=== PATIENT | female | born 1970 | race Caucasian/White ===

== ENCOUNTER 2018-01-24 20:03 | Emergency (ER) | payer BC ==
[2018-01-24] MEDS ORDERED: Ringers Lactate 1,000 ML IV ONE (20:23)
[2018-01-24] MEDS ORDERED: HYDROMORPHONE HCL 1 MG/ML INJ ONE (20:23)
[2018-01-24] MEDS ORDERED: TETANUS & DIPHTHERIA TOX,ADULT 0.5 ML VIAL ONE (20:44)
[2018-01-24] MEDS ORDERED: FENTANYL CITR 100 MCG/2 ML ONE ×2 (21:03→21:44)
[2018-01-24 21:17] LABS: Absolute Lymphocytes (CBC) 2.2 K/uL (0.7-4.9); Absolute Monocytes 0.5 K/uL (0.1-1.3); Absolute Neutrophil 6.7 K/uL (1.8-8.0); Basophils % 0.6 % (0-1.3); Eosinophils % 0.4 % (0-4.4); Hematocrit 44.4 % (36.0-45.0); Lymphocytes % 23.1 % (15.3-44.8); MCH 38.8 pg (27.0-35.0); MCV 111.5 fL (80-100); MPV 9.1 fL (7.6-11.3); Monocytes % 5.2 % (3.3-12.3); RBC Red Blood Cell Count 3.98 M/uL (3.86-4.86)
--- NOTE | 2018-01-24 21:19 | EDPHYS ---
Physician Documentation [facility] Name: Anh Alegre Age: 47 yrs Sex: Female : 1970 Arrival Date: 01/24/2018 Time: 20:07 Bed 5 Private MD: ED Physician Teto Vargas HPI: 01/24 21:19 This 47 yrs old Female presents to ER via Ambulatory with complaints of Hand tw4 Burn. 21:19 The patient presents with a burn as a result of hot grease, while cooking, at home. tw4 Onset: The symptoms/episode began/occurred today. Burn type and severity: 2nd degree: approximately 1% total body surface area of second degree injury, of the dorsal aspect of proximal phalanx of left thumb, dorsal aspect of middle phalanx of left index finger, dorsal aspect of proximal phalanx of left index finger, dorsal aspect of distal phalanx of left middle finger, dorsal aspect of middle phalanx of left middle finger, dorsal aspect of proximal phalanx of left middle finger, dorsal aspect of distal phalanx of left ring finger, dorsal aspect of middle phalanx of left ring finger, dorsal aspect of proximal phalanx of left ring finger, dorsal aspect of distal phalanx of left little finger, dorsal aspect of middle phalanx of left little finger, dorsal aspect of proximal phalanx of left little finger, dorsum of left hand, palmar aspect of distal phalanx of left little finger, palmar aspect of middle phalanx of left little finger, palmar aspect of proximal phalanx of left little finger, palmar aspect of distal phalanx of left ring finger, palmar aspect of middle phalanx of left ring finger, palmar aspect of proximal phalanx of left ring finger, palmar aspect of distal phalanx of left middle finger, palmar aspect of middle phalanx of left middle finger, palmar aspect of proximal phalanx of left middle finger, palmar aspect of distal phalanx of left index finger, palmar aspect of middle phalanx of left index finger, palmar aspect of proximal phalanx of left index finger, palmar aspect of distal phalanx of left thumb, palmar aspect of proximal phalanx of left thumb, palm of left hand, left thumbnail, left index fingernail, left middle fingernail, left ring fingernail, left little fingernail and Left first web space. 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 - Social history:: Smoking status: Patient uses tobacco products, smokes one-half pack cigarettes per day, Patient uses alcohol, occasionally. - Ebola Screening: : Patient negative for fever greater than or equal to 101.5 degrees Fahrenheit, and additional compatible Ebola Virus Disease symptoms Patient denies exposure to infectious person Patient denies travel to an Ebola-affected area in the 21 days before illness onset. ROS: 21:19 Constitutional: Negative for fever, chills, and weight loss, Eyes: Negative for injury, tw4 pain, redness, and discharge, Cardiovascular: Negative for chest pain, palpitations, and edema, Respiratory: Negative for shortness of breath, cough, wheezing, and pleuritic chest pain, Abdomen/GI: Negative for abdominal pain, nausea, vomiting, diarrhea, and constipation. 21:19 MS/extremity: Positive for injury or acute deformity, decreased range of motion, pain. Exam: 21:19 Head/Face: Normocephalic, atraumatic. Chest/axilla: Normal chest wall appearance and tw4 motion. Nontender with no deformity. No lesions are appreciated. Cardiovascular: Regular rate and rhythm with a normal S1 and S2. No gallops, murmurs, or rubs. Normal PMI, no JVD. No pulse deficits. Respiratory: Lungs have equal breath sounds bilaterally, clear to auscultation and percussion. No rales, rhonchi or wheezes noted. No increased work of breathing, no retractions or nasal flaring. Abdomen/GI: Soft, non-tender, with normal bowel sounds. No distension or tympany. No guarding or rebound. No evidence of tenderness throughout. 21:19 Neuro: Awake and alert, GCS 15, oriented to person, place, time, and situation. Cranial nerves II-XII grossly intact. Motor strength 5/5 in all extremities. Sensory grossly intact. Cerebellar exam normal. Normal gait. 21:19 Constitutional: The patient appears in obvious distress, in obvious pain. 21:19 Musculoskeletal/extremity: Extremities: noted in the dorsal aspect of distal phalanx of left thumb, dorsal aspect of proximal phalanx of left thumb, dorsal aspect of distal phalanx of left index finger, dorsal aspect of middle phalanx of left index finger, dorsal aspect of proximal phalanx of left index finger, dorsal aspect of distal phalanx of left middle finger, dorsal aspect of middle phalanx of left middle finger, dorsal aspect of proximal phalanx of left middle finger, left ring finger, dorsal aspect of distal phalanx of left ring finger, dorsal aspect of middle phalanx of left ring finger, dorsal aspect of proximal phalanx of left ring finger, dorsal aspect of distal phalanx of left little finger, dorsal aspect of middle phalanx of left little finger, dorsal aspect of proximal phalanx of left little finger, dorsum of left hand, palmar aspect of distal phalanx of left little finger, palmar aspect of middle phalanx of left little finger, palmar aspect of proximal phalanx of left little finger, palmar aspect of distal phalanx of left ring finger, palmar aspect of middle phalanx of left ring finger, palmar aspect of proximal phalanx of left ring finger, palmar aspect of distal phalanx of left middle finger, palmar aspect of middle phalanx of left middle finger, palmar aspect of proximal phalanx of left middle finger, palmar aspect of distal phalanx of left index finger, palmar aspect of middle phalanx of left index finger, palmar aspect of proximal phalanx of left index finger, heel of left hand, left thumbnail, left index fingernail, left middle fingernail and left little fingernail: 2nd degree burn. Vital Signs: 20:05 BP 154 / 116; Pulse 141; Resp 18; Temp 99.7(O); Pulse Ox 99% on R/A; Weight 58.97 kg fc (R); Height 5 ft. 3 in. (160.02 cm) (R); Pain 10/10; 20:38 BP 146 / 104; Pulse 95; Resp 16; Pulse Ox 98% on R/A; mt 21:18 BP 141 / 94; Pulse 82; Resp 20 S; Pulse Ox 97% on R/A; Pain 7/10; cc3 21:30 BP 145 / 87; Pulse 84; Resp 20 S; Pulse Ox 100% on R/A; Pain 7/10; cc3 20:05 Body Mass Index 23.03 (58.97 kg, 160.02 cm) MDM: 20:07 Patient medically screened. tw4 21:19 Differential diagnosis: 2nd degree lau, 3rd degree lau. Data reviewed: vital signs, tw4 nurses notes. Data interpreted: Pulse oximetry: is not applicable for this patient encounter. Counseling: I had a detailed discussion with the patient and/or guardian regarding: the historical points, exam findings, and any diagnostic results supporting the discharge/admit diagnosis. Medication response: fentanyl. Response to treatment: the patient's symptoms have markedly improved after treatment, and as a result, I will admit patient. Special discussion: I discussed with the patient/guardian in detail that at this point there is no indication for admission to the hospital. It is understood, however, that if the symptoms persist or worsen the patient needs to return immediately for re-evaluation. 01/24 20:55 Order name: CBC with Diff [facility] 01/24 20:55 Order name: CMP [facility] 01/24 20:59 Order name: PT-INR 01/24 20:59 Order name: Ptt, Activated 01/24 21:21 Order name: CBC Smear Scan EDMS Administered Medications: 20:18 Drug: Dilaudid 1 mg Route: IVP; Site: right antecubital; 21:00 Follow up: Response: No adverse reaction; Pain is unchanged, physician notified 20:25 Drug: Lactated Ringers Solution 1000 ml Route: IV; Rate: 150 ml/hr; Site: right cc3 antecubital; 21:15 Follow up: Response: No adverse reaction; IV Status: Completed infusion; IV Intake: cc3 1000ml 20:34 Not Given (order changed): ADAcel 0.5 ml IM once; indicated for adults and teenagers 11 fc to 64 years of age 20:35 Drug: Tetanus-Diphtheria Toxoid Adult 0.5 ml {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 Exp: cc3 03/25/2020. Lot #: [id number]. } Route: IM; Site: right deltoid; 21:00 Follow up: Response: No adverse reaction cc3 21:00 Drug: fentaNYL (PF) 100 mcg Route: IVP; Site: right antecubital; fc 21:22 Follow up: Response: No adverse reaction; Pain is decreased cc3 21:40 Drug: fentaNYL (PF) 50 mcg Route: IVP; Site: right antecubital; cc3 21:55 Follow up: Response: No adverse reaction; Pain is decreased cc3 Disposition: 01/24/18 21:18 Transfer ordered to [facility]. Diagnosis is Burn of second degree of left hand, unspecified site. - Reason for transfer: Higher level of care. - Accepting physician is Dr Marquita Sutherland. - Condition is Stable. - Problem is new. - Symptoms have improved. Signatures: Dispatcher [employer] EDAleisha St RN RN Teto Vargas MD MD tw4 Jackie Hubbard cc3 Corrections: (The following items were deleted from the chart) 21:57 21:18 01/24/2018 21:18 Transfer ordered to [facility]. cc3 Diagnosis is Burn of second degree of left hand, unspecified site. Reason for transfer: Higher level of care. Accepting physician is Dr Marquita Sutherland. Condition is Stable. Problem is new. Symptoms have improved. tw4
--- NOTE | 2018-01-24 21:19 | ER ---
Nurse's Notes [facility] Name: Anh Alegre Age: 47 yrs Sex: Female : 1970 Arrival Date: 01/24/2018 Time: 20:07 Bed 5 Private MD: Diagnosis: Burn of second degree of left hand, unspecified site Presentation: 01/24 20:05 Presenting complaint: Patient states: that she was attempting to pour hot grease into a bowl and the pot slipped and it spilt on her left hand. Entire hand on both sides burning. Transition of care: patient was not received from another setting of care. Onset of symptoms was January 24, 2018 at 19:55. Risk Assessment: Do you want to hurt yourself or someone else? Patient reports no desire to harm self or others. Initial Sepsis Screen: Does the patient meet any 2 criteria? HR > 90 bpm. Yes Does the patient have a suspected source of infection? No. Patient's initial sepsis screen is negative. Note during triage NS soaked 4x4's applied to hand after Dr Vargas examined hand. Care prior to arrival: None. 20:05 Method Of Arrival: Ambulatory 20:05 Acuity: VASILE 2 Triage Assessment: 20:07 General: Appears distressed, uncomfortable, Behavior is cooperative, anxious. Pain: cc3 Complains of pain in left hand Pain currently is 10 out of 10 on a pain scale. EENT: No signs and/or symptoms were reported regarding the EENT system. Neuro: Level of Consciousness is awake, alert, obeys commands, Oriented to person, place, time, situation, Appropriate for age. Cardiovascular: Denies chest pain. Respiratory: Airway is patent Respiratory effort is even, unlabored, Respiratory pattern is regular, symmetrical. GI: Abdomen is round non-distended. : No signs and/or symptoms were reported regarding the genitourinary system. Derm: Reports burning, on the left hand. Musculoskeletal: Circulation, motion, and sensation intact. Range of motion: intact in all extremities, Swelling present in left hand. Injury Description: Patient sustained second-degree burn(s) to left hand. 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 - Social history:: Smoking status: Patient uses tobacco products, smokes one-half pack cigarettes per day, Patient uses alcohol, occasionally. - Ebola Screening: : Patient negative for fever greater than or equal to 101.5 degrees Fahrenheit, and additional compatible Ebola Virus Disease symptoms Patient denies exposure to infectious person Patient denies travel to an Ebola-affected area in the 21 days before illness onset. Screenin:05 Abuse screen: Denies threats or abuse. Nutritional screening: No deficits noted. fc Tuberculosis screening: No symptoms or risk factors identified. Fall Risk None identified. Assessment: 21:00 Reassessment: Pt continues to complain of pain. Dr Vargas notified and pt to get fc Fentanyl and also to run LR that is currently hanging as a bolus. 21:10 Reassessment: Patient appears in no apparent distress at this time. Patient and/or cc3 family updated on plan of care and expected duration. Pain level reassessed. Patient is alert, oriented x 3, equal unlabored respirations, skin warm/dry/pink. Patient for transfer to [facility], report called to MAXIMO Haines for continuity of care and informed that wet dressing was in place. 21:40 Reassessment: Patient and/or family updated on plan of care and expected duration. Pain cc3 level reassessed. Patient is alert, oriented x 3, equal unlabored respirations, skin warm/dry/pink. [facility] came to fetch the patient for transfer to [facility]. 21:55 Reassessment: Patient left ER vitally stable by EMS stretcher for transfer. cc3 Vital Signs: 20:05 BP 154 / 116; Pulse 141; Resp 18; Temp 99.7(O); Pulse Ox 99% on R/A; Weight 58.97 kg fc (R); Height 5 ft. 3 in. (160.02 cm) (R); Pain 10/10; 20:38 BP 146 / 104; Pulse 95; Resp 16; Pulse Ox 98% on R/A; mt 21:18 BP 141 / 94; Pulse 82; Resp 20 S; Pulse Ox 97% on R/A; Pain 7/10; cc3 21:30 BP 145 / 87; Pulse 84; Resp 20 S; Pulse Ox 100% on R/A; Pain 7/10; cc3 20:05 Body Mass Index 23.03 (58.97 kg, 160.02 cm) ED Course: 20:05 Arm band placed on Patient placed in an exam room, on a stretcher. 20:05 Patient has correct armband on for positive identification. Placed in gown. Bed in low fc position. Call light in reach. Side rails up X 1. Pulse ox on. NIBP on. 20:07 Patient arrived in ED. hb 20:07 Teto Vargas MD is Attending Physician. tw4 20:19 Jackie Hubbard is Primary Nurse. cc3 20:24 Inserted saline lock: 20 gauge in right antecubital area, using aseptic technique. mt Blood collected. Wound care: to hand burn located on left hand was soaked in normal saline solution, Patient tolerated well. 20:25 Triage completed. 21:40 No provider procedures requiring assistance completed. Patient transferred, IV remains cc3 in place. 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 Exp: cc3 03/25/2020. Lot #: [id number]. } Route: IM; Site: right deltoid; 21:00 Follow up: Response: No adverse reaction cc3 21:00 Drug: fentaNYL (PF) 100 mcg Route: IVP; Site: right antecubital; 21:22 Follow up: Response: No adverse reaction; Pain is decreased cc3 21:40 Drug: fentaNYL (PF) 50 mcg Route: IVP; Site: right antecubital; cc3 21:55 Follow up: Response: No adverse reaction; Pain is decreased cc3 Intake: 21:15 IV: 1000ml; Total: 1000ml. cc3 Outcome: 21:18 ER care complete, transfer ordered by . tw4 21:40 Transferred by ground EMS to [facility], Transfer form completed. Note: Burn cc3 Center 21:40 Condition: stable 21:40 Instructed on the need for transfer, Demonstrated understanding of instructions. 21:57 Patient left the ED. cc3 Signatures: Aleisha Moses RN RN Fifi Driscoll RN RN hb Thompson, Moriah mt Wadley, Terrence, MD MD 4 Jackie Hubbard cc3 Corrections: (The following items were deleted from the chart) 20:27 20:05 BP 154 / 116; Pulse 141bpm; Resp 18bpm; Pulse Ox 99% RA; 58.97 kg Reported; fc Height 5 ft. 3 in. Reported; BMI: 23.0; Pain 10/10; fc 21:05 20:07 Injury Description: Patient sustained first-degree burn(s) to left hand. cc3 cc3 22:06 21:40 Reassessment: Patient and/or family updated on plan of care and expected cc3 duration. Pain level reassessed. Patient is alert, oriented x 3, equal unlabored respirations, skin warm/dry/pink. [facility] came. cc3
[2018-01-24 21:22] LABS: Protime INR 0.97
[2018-01-24 21:39] LABS: Albumin 4.3 g/dL (3.4-5.0); Bilirubin Total 0.6 mg/dL (0.2-1.0); Potassium 3.6 mmol/L (3.5-5.1); Protein, Total 7.7 g/dL (6.4-8.2)
[2018-01-24 21:47] LABS: Blood Morphology Comment NOT SEEN (NOT SEEN); Macrocytosis 2+; Platelet Estimate ADEQ; Urine White Blood Cell Casts OK
== END 2018-01-24 21:57 | disposition short-term general hospital (02) ==
LOC: ER 20:03
DX: T23.202A Burn of second degree of left hand, unspecified site, initial encounter (principal); X10.2XXA Contact with fats and cooking oils, initial encounter; Y93.G3 Activity, cooking and baking; Y92.000 Kitchen of unspecified non-institutional (private) residence as the place of occurrence of the external cause; Z23 Encounter for immunization; Z98.82 Breast implant status; Z88.0 Allergy status to penicillin; Z88.2 Allergy status to sulfonamides; F17.210 Nicotine dependence, cigarettes, uncomplicated
CPT/HCPCS: 36415; 80053; 85025; 85610; 85730; 90714; 96361; 96374; 96375; 99285; J1170; J3010

== ENCOUNTER 2018-06-08 16:35 | Emergency (ER) | payer BC ==
--- NOTE | 2018-06-08 18:09 | ER ---
Nurse's Notes [facility] Name: Anh Alegre Age: 48 yrs Sex: Female : 1970 Arrival Date: 06/08/2018 Time: 16:38 Bed 11 Private MD: Diagnosis: Presentation: 06/08 16:49 Presenting complaint: Patient states: "I noticed an insect bite yesterday on my right aa5 ankle and today it stated to blister" Pt states "the blister gets getting bigger and it hurts". Transition of care: patient was not received from another setting of care. Onset of symptoms was June 2018. Risk Assessment: Do you want to hurt yourself or someone else? Patient reports no desire to harm self or others. Initial Sepsis Screen: Does the patient meet any 2 criteria? No. Patient's initial sepsis screen is negative. Does the patient have a suspected source of infection? No. Patient's initial sepsis screen is negative. Care prior to arrival: None. 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 - Social history:: Smoking status: Patient uses tobacco products, smokes one-half pack cigarettes per day. - Ebola Screening: : No symptoms or risks identified at this time. Assessment: 16:50 General: Appears comfortable, Behavior is calm, cooperative. Pain: Complains of pain in aa5 right ankle. Neuro: Level of Consciousness is awake, alert, obeys commands, Oriented to person, place, time, situation. Cardiovascular: Patient's skin is warm and dry. Respiratory: Airway is patent Respiratory effort is even, unlabored, Respiratory pattern is regular, symmetrical. GI: No signs and/or symptoms were reported involving the gastrointestinal system. : No signs and/or symptoms were reported regarding the genitourinary system. EENT: No signs and/or symptoms were reported regarding the EENT system. Derm: Skin is pink, warm \\T\\ dry. Blister that is dime-sized noted to right ankle. Musculoskeletal: Range of motion: intact in all extremities. Vital Signs: 16:51 BP 146 / 97; Pulse 93; Resp 16 S; Temp 98.9(O); Pulse Ox 99% on R/A; Weight 67.13 kg aa5 (R); Height 5 ft. 3 in. (160.02 cm) (R); Pain 6/10; 16:51 Body Mass Index 26.22 (67.13 kg, 160.02 cm) aa5 ED Course: 16:38 Patient arrived in ED. mr 16:50 Triage completed. aa5 16:50 Arm band placed on. aa5 16:52 Lucille Tobar, MAXIMO is Primary Nurse. aa5 17:20 Ankita Gomes FNP-C is PHCP. snw 17:20 Godwin Gaspar MD is Attending Physician. snw 18:07 No provider procedures requiring assistance completed. Patient did not have IV access ss during this emergency room visit. Administered Medications: No medications were administered Outcome: 18:07 Eloped from patient exam room, before seeing physician ss 18:07 unknown 18:08 Patient left the ED. ss Signatures: Ankita Gomes FNP-C FNP-Selina Temitope Ramirez Lucille Tobar, MAXIMO MARSH [facility] Yael Loco RN RN
== END 2018-06-08 18:08 | disposition left against medical advice (07) ==
LOC: ER 16:35
DX: Z53.21 Procedure and treatment not carried out due to patient leaving prior to being seen by health care provider (principal); F17.210 Nicotine dependence, cigarettes, uncomplicated; Z88.0 Allergy status to penicillin; Z88.2 Allergy status to sulfonamides
CPT/HCPCS: 99281

== ENCOUNTER 2018-06-15 08:53 | Day surgery (SDC) | payer BC ==
[2018-06-15] MEDS ORDERED: Ringers Lactate 1,000 ML IV ONE (09:11)
[2018-06-15] MEDS ORDERED: DIAZEPAM 5 MG TABLET ONE (09:52)
[2018-06-15] MEDS ORDERED: SCOPOLAMINE HYDROBROMIDE PATCH TD ONE (09:55)
[2018-06-15] MEDS ORDERED: LIDOCAINE 1.5% W/EPI AMP 5 ML ONE (10:09)
[2018-06-15] MEDS: LIDOCAINE 1% W/EPI 1:100,000 MDV 50 ML VIAL ONE ×2 (10:39→11:13)
[2018-06-15] MEDS ORDERED: MIDAZOLAM HCL 2 MG/2 ML INJ ONE (10:59)
[2018-06-15] MEDS ORDERED: FENTANYL CITR 100 MCG/2 ML ONE (10:59)
[2018-06-15] MEDS ORDERED: LIDOCAINE 2% MPF 5 ML VIAL ONE (10:59)
[2018-06-15] MEDS ORDERED: PROPOFOL 200 MG/20 ML VIAL IV ONE ×2 (10:59→11:25)
[2018-06-15] MEDS ORDERED: KETOROLAC 30 MG/ML INJ ONE (11:28)
[2018-06-15] MEDS ORDERED: HYDROMORPHONE HCL 1 MG/ML INJ ONE (11:54)
[2018-06-15] MEDS ORDERED: ONDANSETRON 4 MG/2 ML VIAL ONE (11:56)
--- NOTE | 2018-06-15 22:57 | OP ---
Date of Procedure: 06/15/2018 Surgeon: Hiwot Longoria MD Preoperative Diagnoses: Menorrhagia, dysmenorrhea, left lower quadrant pain. Postoperative Diagnoses: Menorrhagia, dysmenorrhea, left lower quadrant pain. Uterine prolapse stag e I and rectocele or posterior wall prolapse stage II. Procedures Performed: Hysteroscopy, D and C. Specimens: Endometrial curettings. Complications: None. Drains: None. Findings: Uterus 8 weeks size, uterine prolapse POP-Q is as follows -2, -2, -2, 5, moderate 7 and 0, +1 and -2. Significant uterine descent and prolapse with the posterior wall prolapse that are noted significantly and wider genital hiatus. On inspection of the endometrial cavity, both tubal ostia w ere well visualized. Endometrial cavity was empty. Thickened endometrium seen. No other findings. Endometrial curettings were performed adequately. Description Of Procedure: After informed consent was verified, the patient was taken back to the OR, placed in a supine fashion on the operating table. After MAC was given, she was placed in a dorsal lithotomy position. Pelvic exam was performed. POP-Q as above. The anterior lip was injected with 1% lidocaine mixed with 1:1000 epinephrine, 5 cc or 6 cc was given here, then 5-6 cc for the cervicov aginal junction on both sides. A total of 16 cc was used. Prep x3 with Betadine was done. Keys spe culum was used. Diagnostic SlimLine hysteroscope was used to enter the cervical canal and this was t raversed under direct visualization into the uterine cavity. The cavity was empty. Both tubal ostia were visualized. The endometrium appeared to be thickened, but no intracavitary lesions were seen. The scope was then pulled out. Endometrial curettings were performed after dilating the cervix to 1 4-Palestinian with a #2 curette. Adequate sampling was obtained. All these were sent for permanent patho logy. Instruments removed. Instrument, needle, and sponge counts were done and were correct at the end of the case. The patient tolerated the procedure well. She was given Toradol 30 mg in the OR an d taken to the PACU in stable condition. She will follow up to the same-day surgery and in stable co ndition she will be discharged home today and she will follow up with me in 1 week for her appointmen t. She was extremely anxious and she was given Valium prior to the procedure as well. SEPIDEH/GENO Voice ID: [id number] Report ID: [id number]
== END 2018-06-15 12:45 | disposition home or self-care (01) ==
LOC: OR 08:53
PROVIDERS: ATTEND Obstetrics & Gynecology
PROC: 0UJD8ZZ Inspection of Uterus and Cervix, Via Natural or Artificial Opening Endoscopic (ICD-10-PCS; 2018-06-15)
PROC: 0UDB7ZX Extraction of Endometrium, Via Natural or Artificial Opening, Diagnostic (ICD-10-PCS; principal; 2018-06-15 10:30)
DX: N71.1 Chronic inflammatory disease of uterus (principal); N81.2 Incomplete uterovaginal prolapse; N92.0 Excessive and frequent menstruation with regular cycle; N94.6 Dysmenorrhea, unspecified; N76.0 Acute vaginitis
CPT/HCPCS: 81025; 88305; J1170; J2001; J2250; J2405; J2704; J3010

== ENCOUNTER 2018-07-13 08:08 | Day surgery (SDC) | payer BC ==
[2018-07-10 13:44] LABS: Urine Appearance CLOUDY; Urine Bilirubin NEGATIVE (NEG); Urine Blood 2+ (NEG); Urine Color YELLOW; Urine Glucose NEGATIVE (NEG); Urine Protein NEGATIVE (NEG); Urine Urobilinogen 0.2 mg/dL (0.2-1.0); Urine pH 5.5 (5.0-7.0)
--- NOTE | 2018-07-10 13:44 | RAD REPORT ---
EXAM DESCRIPTION: RAD - Chest Pa And Lat (2 Views) - 07/10/2018 1:39 pm CLINICAL HISTORY: preop Chest pain. COMPARISON: No comparisons FINDINGS: The lungs are clear. The heart is normal in size. Mild thoracic dextroscoliosis. IMPRESSION: No acute or concerning finding suspected.
[2018-07-10 13:45] LABS: Absolute Lymphocytes (CBC) 1.7 K/uL (0.7-4.9); Absolute Monocytes 0.4 K/uL (0.1-1.3); Absolute Neutrophil 6.3 K/uL (1.8-8.0); Basophils % 0.3 % (0-1.3); Eosinophils % 0.7 % (0-4.4); Hematocrit 46.2 % (36.0-45.0); Lymphocytes % 19.7 % (15.3-44.8); MPV 9.2 fL (7.6-11.3); Monocytes % 5.1 % (3.3-12.3); RBC Red Blood Cell Count 4.28 M/uL (3.86-4.86)
[2018-07-10 13:50] LABS: Urine Microscopic Reflex ORDER UMIC
[2018-07-10 13:56] LABS: Urine Bacteria 20-50 /HPF (<20); Urine Culture Reflex Order REFLEXED; Urine Mucus 2+ /HPF (NONE SEEN)
[2018-07-10 13:59] LABS: Protime INR 0.95
[2018-07-10 14:01] LABS: Potassium 3.7 mmol/L (3.5-5.1)
[2018-07-10 14:03] LABS: Albumin 4.4 g/dL (3.4-5.0); Bilirubin Direct 0.2 mg/dL (0-0.2); Bilirubin Total 0.7 mg/dL (0.2-1.0); Protein, Total 8.2 g/dL (6.4-8.2)
[2018-07-10 16:13] LABS: Anisocytosis 1+; Blood Morphology Comment NOTED (NOT SEEN); Platelet Estimate ADEQ; Urine White Blood Cell Casts OK
[2018-07-13] MEDS ORDERED: SCOPOLAMINE HYDROBROMIDE PATCH TD ONE (08:34)
[2018-07-13] MEDS ORDERED: Ringers Lactate 1,000 ML IV ONE ×3 (08:35→15:45)
[2018-07-13] MEDS: Levofloxacin500mg IV 500 MG/100 ML BAG IV ONE ×3 (09:40→11:12)
[2018-07-13] MEDS ORDERED: PROPOFOL 200 MG/20 ML VIAL IV ONE (10:48)
[2018-07-13] MEDS ORDERED: GLYCOPYRROLATE 0.2 MG/ML SYR ONE ×2 (10:49→10:50)
[2018-07-13] MEDS ORDERED: ROCURONIUM 50 MG/5 ML VIAL IV ONE ×2 (10:49→12:50)
[2018-07-13] MEDS ORDERED: LIDOCAINE 2% MPF 5 ML VIAL ONE (10:50)
[2018-07-13] MEDS ORDERED: DEXAMETHASONE 10 MG/ML VIAL ONE (10:50)
[2018-07-13] MEDS ORDERED: MIDAZOLAM HCL 2 MG/2 ML INJ ONE ×2 (10:51→11:17)
[2018-07-13] MEDS ORDERED: FENTANYL CITR 250 MCG/5 ML ONE (10:51)
[2018-07-13] MEDS ORDERED: ONDANSETRON 4 MG/2 ML VIAL ONE ×2 (10:52→13:24)
[2018-07-13] MEDS ORDERED: NEOSTIGMINE 1 MG/ML -10 ML VIAL ONE (10:52)
[2018-07-13] MEDS: NA CHLORIDE 0.9% 1,000 ML ONE ×4 (10:57→11:15)
[2018-07-13] MEDS ORDERED: FENTANYL CITR 100 MCG/2 ML ONE (11:17)
[2018-07-13] MEDS ORDERED: KETOROLAC 30 MG/ML INJ ONE (13:23)
[2018-07-13] MEDS ORDERED: MORPHINE 10 MG/ML VIAL ONE (14:00)
[2018-07-13] MEDS: MEPERIDINE HCL 50 MG/ML AMP ONE ×3 (14:28→14:41)
[2018-07-13] MEDS ORDERED: HYDROCODONE/APAP 5/325 MG TAB PO ONE (15:35)
[2018-07-13] MEDS ORDERED: HYDROCODONE/APAP 5/325 MG TAB ONE (15:45)
--- NOTE | 2018-07-14 00:11 | OP ---
Date of Procedure: 07/13/2018 Surgeon: Hiwot Longoria MD Preoperative Diagnoses: Chronic inflammation of the uterus, left lower quadrant pain, menorrhagia. Preoperative Diagnoses: Chronic inflammation of the uterus; left lower quadrant pain, menorrhagia; l eiomyomata; left hemorrhagic ovarian cyst, possible endometrioma; extensive bowel adhesions. Procedures Performed: Diagnostic laparoscopy with extensive lysis of adhesions of the ascending colo n to the anterior abdominal wall and of the sigmoid colon to the left lateral wall and opening of the cul-de-sac to free up the adhesions of the rectosigmoid. Total laparoscopic hysterectomy and bilate ral salpingo-oophorectomy. Anesthesia: General endotracheal. Specimens: Uterus, bilateral tubes and ovaries. Complications: No complications. Drains: No drains. Condition: Stable. Description Of Procedure: After informed consent was verified, the patient was taken back to OR, maxi jamie in supine fashion on the operating table. After general anesthesia was given, she was placed in a dorsal lithotomy position. 500 mg of Levaquin were given intravenously preoperatively. [facility] Arms tucked by the side. Pelvic exam performed. Uterus anteflexed; mobile, possible left adnex al mass, small. Abdomen, vulva, vagina, and perineum were prepped and draped in a sterile fashion. Goodwin was placed to drain the bladder and attached to cysto tubing to an LR bag, emptied 300. Vagina l speculum was placed. Cervix was exposed, and a large VCare introduced and fixed in place. This ar ea was then draped. 1 cm infraumbilical incision was made with a scalpel using the open laparoscopy technique. Fascia wa s incised, tagged. Peritoneum entered bluntly. S retractor was placed. Mima introduced. Site of entry was checked, unremarkable. Upper abdominal surfaces, liver, gallbladder are unremarkable. Th ere were adhesions of the sigmoid colon, the ascending colon, pretty close to cecum to the anterior a bdominal wall, likely from her past appendectomy. There were significant adhesions of the sigmoid wi th the sigmoid could not be moved away from the lateral wall or the posterior broad ligament. A 10 mm suprapubic and 5 mm left lower quadrant ports were placed under direct vision, and right lowe r quadrant 5 mm was placed later on. The additional port was done in order to take the adhesions sloane n. Starting at the pelvic brim, the adhesions were picked up, pushed by the push-spread technique. They were in some places, but mostly very densely adherent. I had to cut to separate from the lateral pelvic peritoneum after entering the uterine from slightly below the level of the pelvic brim to the ureteric tunnel. This is contiguous to the area of the adhesions. No evidence of any endometriosis was found. However, the adhesions were densely stuck, so they had t o be released in order for me to have space to dissect and perform the procedure safely. All these a dhesions were taken down systematically with push-spread technique. Zari switched over with grasp ers to create windows and they were taken down. Once the cul-de-sac was completely freed up, I was a ble to retrieve the sigmoid colon. The ascending colon adhesions were also there. They were taken d own before the right lower quadrant port was placed. All these were done with scissors, bipolar as needed, LigaSure. After all the adhesions were taken d own, which took more than 50% of the case, then there was a large redundant colon which had to be ret racted in 2 different [address] for the surgery to be performed. Then, hysterectomy was started. The l eft ovary and tube were present where the left ovary had a large endometrioma like cyst on it and the re was a distal tubal cyst as well. The left ovarian cyst appeared to be an endometrioma, so careful ly removed all the tissue around it and the ovary along the cyst was removed by isolating the pedicle of the infundibulopelvic ligament opening the medial and lateral peritoneal reflections, and then th e entire ovary with the cysts were removed with the LigaSure. Then, the left tube was removed in its entirety. Then, utero-ovarian ligament taken down this broad ligament on both sides anteriorly and posteriorly. Bladder flap created all the way to the opposite side, posteriorly taken down to the le ft uterosacral broad ligament, skeletonized to expose the vessels. Similar dissection was performed all on the right side as well, taken down the round ligament mesosal pinx, tube, utero-ovarian ligament, broad ligament, anterior leaf, connecting the bladder flap. Post eriorly, when coming down, there was an abnormal branch of the uterine vein which had divided and was ascending slightly higher than the level of the internal os. Here, this vessel was carefully isolat ed and cauterized and cut with the help of the LigaSure. Then, the bladder flap was created by openi ng up the vesicovaginal space carefully and retracting the bladder down inferiorly. Once this was do ne, I was able to make medial incisions with the monopolar for me to cauterize and take down the uter ine vessels as these ended up. Once this was done, bipolar LigaSure was used to take down the pedicl es and the cardinal ligaments on both sides. Then circumferential colpotomy with a monopolar hook bl stefany. Specimen retrieved through the vagina. The right ovary and tube were also isolated and removed . All these were brought out along with the left ovary and tube through the vagina. They were handed off for permanent pathology including the distal segment of the left tube. All the areas of dissection were thoroughly irrigated and suctioned. Simple 0 Vicryl suture was placed at sahil th ends and four [id number] in the middle to close the entire length. A second layer of imbric ation was done on the left with 2-0 Vicryl. Once this was done, everything was secured. No evidence of any mechanical elliptical or thermal injury to the ureters. No bleeding. Gas was desufflated af ter the trocars were removed under direct vision. The umbilical trocar removed after desufflation. Fascia at the umbilicus closed with a 0 Vicryl tag suture; that was placed as retention. They were t ied together on both ends and then a simple 0 Vicryl stitch at the suprapubic fascial incision. All the skin incisions were closed with the help of interrupted 4-0 Vicryls. Goodwin was removed and the v aginal bulb were removed. The patient was recovered from anesthesia and taken to PACU in stable cond ition. Instrument, needle, and sponge counts x3 were correct at the end of the case. SEPIDEH/GENO Voice ID: [id number] Report ID: [id number]
== END 2018-07-13 17:11 | disposition home or self-care (01) ==
LOC: OR 08:08
PROVIDERS: ATTEND Obstetrics & Gynecology
PROC: 0UT24ZZ Resection of Bilateral Ovaries, Percutaneous Endoscopic Approach (ICD-10-PCS; 2018-07-13)
PROC: 0UT74ZZ Resection of Bilateral Fallopian Tubes, Percutaneous Endoscopic Approach (ICD-10-PCS; 2018-07-13)
PROC: 0UT94ZZ Resection of Uterus, Percutaneous Endoscopic Approach (ICD-10-PCS; principal; 2018-07-13 10:30)
DX: D25.9 Leiomyoma of uterus, unspecified (principal); N88.8 Other specified noninflammatory disorders of cervix uteri; N83.12 Corpus luteum cyst of left ovary; N83.11 Corpus luteum cyst of right ovary; N83.8 Other noninflammatory disorders of ovary, fallopian tube and broad ligament; K66.0 Peritoneal adhesions (postprocedural) (postinfection); N71.1 Chronic inflammatory disease of uterus; N92.0 Excessive and frequent menstruation with regular cycle; F17.210 Nicotine dependence, cigarettes, uncomplicated
CPT/HCPCS: 36415; 71046; 80048; 80076; 81003; 81015; 81025; 85025; 85610; 85730; 86850; 86900; 86901; 87086; 87088; 88108; 88305; 88307; J1100; J2175; J2250; J2405; J2704; J2710; J3010; J7030